=== PATIENT | female | born 1985 | race Caucasian/White ===

== ENCOUNTER 2019-01-25 21:49 | Emergency (ER) | payer BC, MEDICAID, OTHER ==
[2019-01-25] MEDS ORDERED: IPRATROPIUM/ALBUTEROL 3 ML NEB INH STA (22:14)
--- NOTE | 2019-01-25 22:15 | ED Physician Documentation ---
PD HPI DYSPNEA - Stated complaint Stated Complaint: SOA - Chief complaint Chief Complaint: Resp - History obtained from History obtained from: Patient - History of Present Illness Timing - onset: Yesterday (Sick since yesterday with productive cough, shortness of breath and wheezing. She is had similar syndromes in the past, she does not know if she has a history of asthma and she attributes this to smoking. She denies runny nose or sore throat. No pedal edema or calf pain. 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 - Present Medications Home Medications: Ambulatory Orders Medication Instructions Recorded Confirmed RX: Albuterol Sulf [Ventolin Hfa 1 - 2 puffs INH Q4HR PRN #1 inhaler 01/25/19 Inhaler] RX: predniSONE [Deltasone] 60 mg PO DAILY 5 Days #15 tablet 01/25/19 guaiFENesin/CODEINE [Robitussin AC] 5 - 10 ml PO Q6H PRN #120 ml 01/25/19 - Allergies Allergies/Adverse Reactions: Allergies Allergy/AdvReac Type Severity Reaction Status Date / Time No Known Drug Allergies Allergy Verified 01/25/19 22:07 - Social History Does the pt smoke?: Yes Smoking Status: Current every day smoker Does the pt drink ETOH?: No Does the pt have substance abuse?: Yes Substance Use and Type: Other - Immunizations Immunizations are current?: Yes PD ED PE NORMAL - Vitals Vital signs reviewed: Yes - General General: Alert and oriented X 3, Other (Mildly labored breathing but speaking in full sentences, wheezing audible at the bedside) - HEENT HEENT: Pharynx benign - Neck Neck: Supple, no meningeal sign, No bony TTP - Cardiac Cardiac: RRR, No murmur - Respiratory Respiratory: No respiratory distress, Other (Mildly labored breathing, diminished but not absent breath sounds, inspiratory and expiratory wheezes. Nothing focal.) - Abdomen Abdomen: Soft, Non tender - Derm Derm: No rash - Extremities Extremities: No edema, No calf tenderness / cord - Neuro Neuro: Alert and oriented X 3, Normal speech Results - Vitals Vitals: Vital Signs - 24 hr 01/25/19 01/25/19 22:04 22:59 Temperature 37 C Heart Rate 117 H 114 H Respiratory 30 H 20 Rate Blood Pressure 136/79 H 111/80 O2 Saturation 92 93 Oxygen O2 Source Room air - Rads (name of study) 2v chest Radiology: EMP read contemporaneously (normal) PD MEDICAL DECISION MAKING - ED course ED course: 33yo with recurrent RAD from URI. CLear CXR. Better here p nebs. Departure - Departure Disposition: Home, Self Care Clinical Impression: Asthmatic bronchitis with acute exacerbation Condition: Good Record reviewed to determine appropriate education?: Yes Instructions: ED Reactive Airway Disease, ED Smoking Cessation Prescriptions: RX: Albuterol Sulf [Ventolin Hfa Inhaler] 1 - 2 puffs INH Q4HR PRN #1 inhaler PRN Reason: Shortness Of Air/Wheezing guaiFENesin/CODEINE [Robitussin AC] 5 - 10 ml PO Q6H PRN #120 ml PRN Reason: Cough RX: predniSONE [Deltasone] 60 mg PO DAILY 5 Days #15 tablet Comments: Call your doctor to arrange a follow-up appointment, make the next available appointment. In the interim, return anytime if worse or if new symptoms develop. Your blood pressure was elevated today on check into the emergency department. This does not mean that you have hypertension, it is a common phenomenon to come to the emergency department and have elevated blood pressure. I recommend that you see your primary care physician within the week to have it rechecked when you are feeling better. Discharge Date/Time: 01/25/19 23:04
--- NOTE | 2019-01-25 22:35 | XRAY Report ---
Reason: cough dyspnea Procedure Date: 01/25/2019 Accession Number: [id number] / [id number] Procedure: XR - Chest 2 View X-Ray CPT Code: 91309 FULL RESULT: EXAM: CHEST RADIOGRAPHY EXAM DATE: 01/25/2019 10:22 PM. CLINICAL HISTORY: Cough dyspnea. COMPARISON: None. TECHNIQUE: 2 views. FINDINGS: Lungs/Pleura: No dense consolidation. No large effusion or pneumothorax. No pulmonary edema. Mediastinum: Heart and mediastinal contours are unremarkable. Other: None. IMPRESSION: No acute radiographic pulmonary abnormalities. RADIA
[2019-01-25] MEDS ORDERED: ALBUTEROL NEB 2.5 MG/3 ML INH STA (22:38)
[2019-01-25] MEDS ORDERED: predniSONE 20 MG TABLET PO STA (22:38)
[2019-01-25] MEDS ORDERED: guaiFENesin/CODEINE 5 ML UDC PO STA (22:44)
[2019-01-25 23:00] VITALS: BP 111/80
== END 2019-01-25 23:04 | disposition home or self-care (01) ==
LOC: ED 21:49
DX: J45.901 Unspecified asthma with (acute) exacerbation (principal); F17.200 Nicotine dependence, unspecified, uncomplicated; R03.0 Elevated blood-pressure reading, without diagnosis of hypertension
CPT/HCPCS: 71046; 94640; 99283; 99284; A9270; J7512

== ENCOUNTER 2019-04-16 02:39 | Emergency (ER) | payer MEDICAID ==
[2019-04-16] MEDS ORDERED: IPRATROPIUM/ALBUTEROL 3 ML NEB INH STA (02:52)
--- NOTE | 2019-04-16 03:29 | ED Physician Documentation ---
PD HPI DYSPNEA - Stated complaint Stated Complaint: SOA,COUGH - Chief complaint Chief Complaint: Resp - History obtained from History obtained from: Patient - History of Present Illness Timing - onset: How many days ago (1-2) Timing - duration: Days Timing - details: Gradual onset, Waxing and waning Pain level now: 0 Inciting event(s): Out of meds (recently ran out of albuterol) Associated symptoms: Cough, Wheezing. No: Fever Similar symptoms before: Other (similar episodes in the past including three months ago when she was T+R from this ED, had good relief of symptoms with albuterol and prednisone, but she recently ran out of the albuterol MDI) Review of Systems Constitutional: reports: Reviewed and negative Cardiac: reports: Reviewed and negative Respiratory: reports: Dyspnea, Cough, Wheezing PD PAST MEDICAL HISTORY - Past Medical History Past Medical History: Yes Respiratory: Pneumonia - Past Surgical History Past Surgical History: Yes /[employer]: section - Present Medications Home Medications: Ambulatory Orders Medication Instructions Recorded Confirmed Albuterol Sulf [Ventolin Hfa 1 - 2 puffs INH Q4HR PRN #1 inhaler 04/16/19 Inhaler] predniSONE [Deltasone] 10 mg PO [id number] #42 tab 04/16/19 - Allergies Allergies/Adverse Reactions: Allergies Allergy/AdvReac Type Severity Reaction Status Date / Time No Known Drug Allergies Allergy Verified 04/16/19 02:48 - Social History Does the pt smoke?: Yes Smoking Status: Current every day smoker Does the pt drink ETOH?: No Does the pt have substance abuse?: Yes - Immunizations Immunizations are current?: Yes - POLST Patient has POLST: No PD ED PE NORMAL - Vitals Vital signs reviewed: Yes - General General: Alert and oriented X 3, Well developed/nourished - Cardiac Cardiac: RRR, No murmur - Respiratory Respiratory: No respiratory distress PD ED PE EXPANDED - Respiratory Respiratory: Wheezing, Decreased breath sounds Results - Vitals Vitals: Vital Signs - 24 hr 04/16/19 04/16/19 04/16/19 02:46 03:03 03:10 Temperature 37.2 C Heart Rate 107 H 88 82 Respiratory 24 20 20 Rate Blood Pressure 126/84 H 119/58 L O2 Saturation 91 L 96 04/16/19 04/16/19 04/16/19 03:23 03:49 04:07 Temperature 36.7 C Heart Rate 99 86 90 Respiratory 19 18 18 Rate Blood Pressure 112/69 116/68 O2 Saturation 95 94 Oxygen O2 Source Room air Oxygen Flow Rate 2 PD MEDICAL DECISION MAKING - ED course Complexity details: reviewed old records, re-evaluated patient, considered differential, d/w patient ED course: improved after duoneb and 60 prednisone and reported further relief with second neb (albuterol) and was comfortable with discharge home. reexamination of lungs after 2nd neb reveals improved aeration with decreased wheezing (residual end- expiratory wheezing) Departure - Departure Disposition: 01 Home, Self Care Clinical Impression: Asthmatic bronchitis with acute exacerbation Qualifiers: Asthma severity: unspecified severity Asthma persistence: unspecified Qualified Code(s): J45.901 - Unspecified asthma with (acute) exacerbation Condition: Good Instructions: ED Reactive Airway Disease, ED Bronchitis Asthmatic Prescriptions: Albuterol Sulf [Ventolin Hfa Inhaler] 1 - 2 puffs INH Q4HR PRN #1 inhaler PRN Reason: Shortness Of Air/Wheezing predniSONE [Deltasone] 10 mg PO [id number] #42 tab Discharge Date/Time: 04/16/19 04:08
[2019-04-16] MEDS ORDERED: ALBUTEROL NEB 2.5 MG/3 ML INH STA (03:40)
[2019-04-16] MEDS ORDERED: predniSONE 20 MG TABLET PO STA (03:40)
[2019-04-16 04:08] VITALS: BP 116/68
== END 2019-04-16 04:08 | disposition home or self-care (01) ==
LOC: ED 02:39
DX: J45.901 Unspecified asthma with (acute) exacerbation (principal); F17.200 Nicotine dependence, unspecified, uncomplicated; Z76.0 Encounter for issue of repeat prescription
CPT/HCPCS: 94640; 99283; J7512

== ENCOUNTER 2020-01-28 16:35 | Emergency (ER) | payer MEDICAID ==
--- NOTE | 2020-01-28 16:56 | ED Physician Documentation ---
PD HPI ABD PAIN - Stated complaint Stated Complaint: ABD PX/FEMALE - Chief complaint Chief Complaint: Abd Pain - History obtained from History obtained from: Patient - Additional information Additional information: 34-year-old woman has a 4-year-old IUD. About 6 months ago started developing some mild cramping and spotting which became more significant today in the pelvis after having sex last night. No urinary complaints nausea or fevers. 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 - Present Medications Home Medications: Ambulatory Orders Medication Instructions Recorded Confirmed Albuterol Sulf [Ventolin Hfa 1 - 2 puffs INH Q4HR PRN #1 inhaler 04/16/19 Inhaler] predniSONE [Deltasone] 10 mg PO [id number] #42 tab 04/16/19 - Allergies Allergies/Adverse Reactions: Allergies Allergy/AdvReac Type Severity Reaction Status Date / Time No Known Drug Allergies Allergy Verified 01/28/20 16:48 - Social History Does the pt smoke?: Yes Smoking Status: Current every day smoker Does the pt drink ETOH?: No Does the pt have substance abuse?: Yes - Immunizations Immunizations are current?: Yes - POLST Patient has POLST: No PD ED PE NORMAL - Vitals Vital signs reviewed: Yes - General General: Alert and oriented X 3, No acute distress - Abdomen Abdomen: Soft, Non tender - Female Female : Client Care Manager present (Yovana Remy RN), Other (Slight blood in the vault, IUD strings appear appropriate, nontender.) - Neuro Neuro: Alert and oriented X 3, Normal speech - Psych Psych: Normal mood, Normal affect Results - Vitals Vitals: Vital Signs - 24 hr 01/28/20 01/28/20 01/28/20 16:40 19:11 19:13 Temperature 37.0 C 37.0 C Heart Rate 72 60 56 L Respiratory 18 20 18 Rate Blood Pressure 105/72 109/59 L 109/59 L O2 Saturation 97 99 99 Oxygen O2 Source Room air - Labs Labs: Laboratory Tests 01/28/20 01/28/20 01/28/20 17:00 17:04 17:04 WBC 9.3 RBC 4.86 Hgb 15.3 Hct 44.3 MCV 91.2 MCH 31.5 H MCHC 34.5 RDW 12.0 Plt Count 177 MPV 11.6 H Neut # (Auto) 5.5 Lymph # (Auto) 2.5 [place] # (Auto) 0.5 Eos # (Auto) 0.7 Baso # (Auto) 0.0 Absolute Nucleated RBC 0.00 Nucleated RBC % 0.0 Sodium 138 Potassium 3.7 Chloride 104 Carbon Dioxide 24 Anion Gap 10.0 BUN 7 Creatinine 0.7 Estimated GFR (MDRD) 97 Glucose 105 H Calcium 9.3 Total Bilirubin 0.5 AST 16 ALT 12 Alkaline Phosphatase 45 Total Protein 7.2 Albumin 4.1 Globulin 3.1 Albumin/Globulin Ratio 1.3 Lipase 28 Urine Color YELLOW Urine Clarity HAZY Urine pH 5.5 Ur Specific [place] >=1.030 H Urine Protein NEGATIVE Urine Glucose (UA) NEGATIVE Urine Ketones NEGATIVE Urine Occult Blood LARGE H Urine Nitrite NEGATIVE Urine Bilirubin NEGATIVE Urine Urobilinogen 1 (NORMAL) Ur Leukocyte Esterase NEGATIVE Urine RBC 6-10 H Urine WBC 0-3 Ur Squamous Epith Cells MANY Squamous H Urine Bacteria Few Urine Mucus Moderate Strands Ur Microscopic Review INDICATED Urine Culture Comments NOT INDICATED Urine HCG, Qual NEGATIVE - Rads (name of study) Pelvic sono Radiology: EMP read contemporaneously (IUD ok, otherwise NAD) PD MEDICAL DECISION MAKING - ED course ED course: 34-year-old woman with pelvic pain and spotting. She really wanted her IUD out, and after discussion and informed consent it was removed during a pelvic exam. Departure - Departure Disposition: 01 Home, Self Care Clinical Impression: Encounter for IUD removal, Pelvic pain Condition: Good Record reviewed to determine appropriate education?: Yes Instructions: ED Pelvic Pain UKO Comments: Call your doctor to arrange a follow-up appointment, make the next available appointment. In the interim, return anytime if worse or if new symptoms develop.
[2020-01-28 17:10] LABS: BASOPHILS % (AUTO) 0.3 %; EOSINOPHILS # (AUTO) 0.7 10^3/uL (0.0-0.7); HGB - HEMOGLOBIN 15.3 g/dL (12.0-16.0); LYMPHOCYTES # (AUTO) 2.5 10^3/uL (1.5-3.5); LYMPHOCYTES % (AUTO) 27.2 %; MEAN CORPUSCULAR HEMOGLOBIN 31.5 pg (27.0-31.0); MEAN CORPUSCULAR HGB CONC 34.5 g/dL (32.0-36.0); MEAN CORPUSCULAR VOLUME 91.2 fL (81.0-99.0); MEAN PLATELET VOLUME 11.6 fL (7.9-10.8); MONOCYTES # (AUTO) 0.5 10^3/uL (0.0-1.0); MONOCYTES % (AUTO) 5.8 %; NEUTROPHILS # (AUTO) 5.5 10^3/uL (1.5-6.6); NEUTROPHILS % (AUTO) 59.5 %; PLT - PLATELET COUNT 177 10^3/uL (130-450); RED BLOOD COUNT 4.86 10^6/uL (4.20-5.40); WHITE BLOOD COUNT 9.3 x10^3/uL (4.8-10.8)
[2020-01-28 17:15] LABS: BILIRUBIN,URINE NEGATIVE (NEGATIVE); GLUCOSE, URINE (UA) NEGATIVE (NEGATIVE); KETONES,URINE (UA) NEGATIVE (NEGATIVE); LEUKOCYTE ESTERASE, URINE NEGATIVE (NEGATIVE); NITRITE,URINE NEGATIVE (NEGATIVE); OCCULT BLOOD,URINE LARGE (NEGATIVE); PH,URINE 5.5 PH (5.0-7.5); PROTEIN,URINE NEGATIVE (NEGATIVE); UROBILINOGEN,URINE 1 (NORMAL) E.U./dL (NORMAL)
[2020-01-28 17:16] LABS: CLARITY,URINE HAZY (CLEAR); HCG UR QUAL NEGATIVE
[2020-01-28 17:21] LABS: ALBUMIN 4.1 g/dL (3.2-5.5); ALBUMIN/GLOBULIN RATIO 1.3 (1.0-2.2); BILIRUBIN,TOTAL 0.5 mg/dL (0.2-1.0); CALCIUM 9.3 mg/dL (8.5-10.3); CREATININE 0.7 mg/dL (0.4-1.0); TOTAL PROTEIN 7.2 g/dL (6.7-8.2)
[2020-01-28 17:46] LABS: SQUAMOUS EPITHELIAL CELL,UR MANY Squamous (<= Few)
[2020-01-28 17:47] LABS: BACTERIA,URINE Few /HPF (None Seen); MUCUS,URINE Moderate Strands
[2020-01-28 19:13] VITALS: BP 109/59
--- NOTE | 2020-01-28 19:38 | Ultrasound Report ---
PROCEDURE: Pelvic w/Transvag+Doppler Comp INDICATIONS: pelvic pain ck iud TECHNIQUE: Real-time scanning was performed of the pelvic organs, with image documentation. Additional endovagi nal scanning was necessary due to incomplete visualization of the adnexal and endometrial structures by transabdominal scanning. COMPARISON: None. FINDINGS: Transabdominal scanning: Limited scanning through the kidneys shows no hydronephrosis. No pathologi c free abdominal or pelvic fluid. Endovaginal scanning: Uterus: Uterus is normal in size at 8.5 x 3.8 x 5.7 cm. There is heterogeneous uterine echotexture without focal mass lesions or fibroids. The endometrium measures 9 mm in combined thickness. An intr auterine device is visualized within the endometrial cavity. Ovaries: Right ovary measures 2.5 x 2.1 x 3.0 cm. Left ovary measures 1.5 x 1.7 x 1.7 cm. No suspici ous ovarian or adnexal mass lesions. Arterial and venous waveforms are noted in the bilateral ovaries . There are less than 12 follicles visualized in the bilateral ovaries. IMPRESSION: An intrauterine device is present within the endometrial cavity and appears to be appropriately posit ioned. Pelvic ultrasound without acute abnormalities. Reviewed by: Samir Ceballos MD on 01/28/2020 7:36 PM PDT Approved by: Samir Ceballos MD on 01/28/2020 7:36 PM PDT Station ID: [id number]
== END 2020-01-28 17:59 | disposition home or self-care (01) ==
LOC: ED 16:35
DX: R10.2 Pelvic and perineal pain (principal); Z30.432 Encounter for removal of intrauterine contraceptive device; F17.200 Nicotine dependence, unspecified, uncomplicated
CPT/HCPCS: 36415; 58301; 76830; 76856; 80053; 81001; 81003; 81025; 83690; 85025; 87086; 93975; 99282; 99283